=== PATIENT | male | born 1950 | race Caucasian/White ===

== ENCOUNTER 2020-05-05 14:54 | Emergency (ER) | payer MEDICARE, SELFPAY ==
[2020-05-05 15:08] VITALS: BP 181/81; PULSE 98; RESP 20; TEMP 36.6; O2SAT 96; BMI 38.5
[2020-05-05 15:36] LABS: Amorphous Sediment Urine 1+; Bacteria Urine Occasional (0-1); Culture Indicated Urine Specimen Cultured; Granular Casts Urine 1-5/LPF; Hyaline Casts Urine 1-5/LPF; Ictotest Urine Negative (Negative); Mucus Urine 1+ (Negative); RBC Urine >100/HPF (0-5/HPF); Squamous Epithelial Cell Urine 1-5 /HPF (0-5/HPF); Transitional Epi Cells Urine 1-5/HPF (0-5/HPF); WBC Urine 1-5/HPF (0-5/HPF)
[2020-05-05 15:54] LABS: Add Manual Diff / Slide Review NO; Basophils Absolute Auto 100 /uL (0-100); Basophils Percent Auto 0.9 % (0-2); Eosinophils Absolute Auto 0 /uL (0-450); Eosinophils Percent Auto 0.6 % (2-4); Hematocrit 45.9 % (41-53); Hemoglobin 15.8 g/dL (13.5-17.5); Lymphocytes Absolute Auto 1400 /uL (1100-4500); Mean Corpuscular HGB Conc 34.5 % (30-36); Mean Corpuscular Hemoglobin 31.2 PG (26-34); Mean Corpuscular Volume 90.5 fL (80-100); Monocytes Absolute Auto 700 /uL (0-900); Monocytes Percent Auto 11.9 % (3-14); Neutrophils Absolute Auto 4000 /uL (1500-7000); Neutrophils Percent Auto 63.6 % (50-75); Platelet Count 167 X10^3/uL (150-400); Red Blood Cell Count 5.07 X10^6/uL (4.5-5.9); Red Cell Distribution Width 13.2 % (11.6-14.8); White Blood Cell Count 6.3 X10^3/uL (4.5-11.0)
[2020-05-05 16:04] LABS: INR 2.4 (0.9-1.3); Prothrombin Time 27.3 SECONDS (10.1-12.7)
[2020-05-05 16:08] LABS: Alanine Aminotransferase 91 IU/L (<50); Albumin 4.4 g/dL (3.5-5.0); Albumin Globulin Ratio 1.2 (1.0-2.8); Alkaline Phosphatase 72 U/L (38-126); Amylase 73 U/L (30-110); Aspartate Aminotransferase 89 IU/L (17-59); BUN Creatinine Ratio 23.5 (6-22); Bilirubin Total 1.1 mg/dL (0.2-1.3); Blood Urea Nitrogen 23 mg/dL (9-20); Calcium 9.6 mg/dL (8.4-10.2); Carbon Dioxide 25 mmol/L (22-32); Chloride 102 mmol/L (98-107); Estimated Glomerular Filt Rate > 60.0 mL/min (>60); Globulin 3.7 g/dL (1.7-4.1); Glucose 100 mg/dL (80-110); HEMOLYSIS 15 (0-50); Lipase 100 U/L (23-300); Sodium 136 mmol/L (137-145); Total Protein 8.1 g/dL (6.3-8.2)
--- NOTE | 2020-05-05 16:11 | ED_ITS ---
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 He states he noticed blood in his urine a few days ago, saw his primary care provider today who referred him to the emergency department. He states he is on Coumadin for his DVTs, his INR today was 2.5. Denies any dysuria urgency or frequency. Does complain of some suprapubic tenderness on the right side. No fevers nausea vomiting or diarrhea. Denies any back or flank pain. He states that he noticed very little blood, it went away, but he still had some on a urine dip today. Denies passing any clots. Related Data Home Medications Medication Instructions Recorded Confirmed Fish Oil 1,000 mg PO Q DAY #0 03/08/11 [MULTIVITAMIN] #0 06/08/13 Previous Rx's Medication Instructions Recorded atorvastatin [Lipitor] 10 mg PO HS #90 tab 11/28/16 warfarin [Coumadin] 0 PO QDAY #90 tab 11/28/16 warfarin [Coumadin] 4 mg PO QDAY #90 tab 11/28/16 rivaroxaban [Xarelto] 0 PO QDAY #90 tab 04/25/17 Allergies Allergy/AdvReac Type Severity Reaction Status Date / Time niacin [NIACIN] AdvReac Mild ANXIETY, Verified 05/05/20 15:08 FLUSHING nifedipine [NIFEDIPINE] AdvReac Mild NASAL Verified 05/05/20 15:08 CONGESTION Review of Systems <MALVIN Pedersen - Last Filed: 05/05/20 19:01> Review of Systems Narrative: GENERAL: Denies chills, fatigue, malaise, fever, sweats. HEENT: Denies sinus pain, ear pain, sore throat, difficulty swallowing, dizziness. RESPIRATORY: Denies dyspnea, cough, wheezing, hemoptysis, sputum. CARDIOVASCULAR: Denies chest pain, palpitations, orthopnea, edema, GASTROINTESTINAL: See HPI : See HPI MUSCULOSKELETAL: denies weakness, joint pain, or bony pain SKIN: Denies rash, skin lesions, or other NEUROLOGIC: Denies weakness, headache, numbness, change in speech, confusion, seizures, incoordination. PSYCHIATRIC: No concerning psychosocial issues. 12 point review of systems is negative except for those stated above Patient History <MALVIN Pedersen - Last Filed: 05/05/20 19:01> Social History Smoking Status: Never smoker Smoking Status: Never smoker alcohol intake frequency: holidays/special occasions only Substance Use Type: does not use Exam <MALVIN Pedersen - Last Filed: 05/05/20 19:01> Narrative Exam Narrative: GENERAL: This is a well-nourished, well-developed patient, no acute distress HEAD: Atraumatic. Normocephalic. No temporal or scalp tenderness. EYES: Pupils equal round and reactive. Extraocular motions intact. No scleral icterus. No injection or drainage. ENT: Nose without bleeding, purulent drainage or septal hematoma. Throat without erythema, tonsillar hypertrophy or exudate. Uvula midline. Airway patent. NECK: Trachea midline. No JVD or lymphadenopathy. Supple, nontender, no meningeal signs. CARDIOVASCULAR: Regular rate and rhythm RESPIRATORY: Clear to auscultation. Breath sounds equal bilaterally. No wheezes, rales, or rhonchi. No cough. No increased respiratory effort. No accessory muscle use. GASTROINTESTINAL: Abdomen soft, left lower quadrant pain to palpation, active bowel sounds all 4 quadrants No hepato-splenomegaly, or palpable masses. No guarding. EXTREMITIES: No clubbing, cyanosis, or edema. No joint tenderness, effusion, or edema noted. BACK: Nontender without deformity or crepitance. No CVA tenderness NEURO: AOx3. Interactive, age appropriate SKIN: No rash or erythema on visible skin Initial Vital Signs Initial Vital Signs: Vital Signs Temperature 97.9 F 05/05/20 15:08 Pulse Rate 98 H 05/05/20 15:08 Respiratory Rate 20 05/05/20 15:08 Blood Pressure 181/81 H 05/05/20 15:08 Pulse Oximetry 96 05/05/20 15:08 <Awa Donovan DO - Last Filed: 05/12/20 07:56> Initial Vital Signs Initial Vital Signs: Vital Signs Temperature 97.9 F 05/05/20 15:08 Pulse Rate 98 H 05/05/20 15:08 Respiratory Rate 20 05/05/20 15:08 Blood Pressure 181/81 H 05/05/20 15:08 Pulse Oximetry 96 05/05/20 15:08 Scores <MALVIN Pedersen - Last Filed: 05/05/20 19:01> GCS Charles coma scale eye opening: Spontaneous Charles coma scale verbal response: Orientated Charles coma scale motor response: Obey commands Charles coma scale total score: 15 Course <MALVIN Pedersen - Last Filed: 05/05/20 19:01> Orders Ordered: ED Orders 05/05/20 15:00 Ictotest Urine Stat Urine Culture Stat Urine Microscopic Stat 05/05/20 15:45 Amylase Stat Complete Blood Count AUTO DIFF Stat Comprehensive Metabolic Panel Stat Lipase Stat Prothrombin Time INR Stat 05/05/20 16:31 CT abdomen pelvis w con Stat Vital Signs Vital signs: Vital Signs - 8 hr 05/05/20 15:08 05/05/20 18:11 Temperature 97.9 F 97.8 F Pulse Rate 98 H 88 Respiratory Rate 20 12 Blood Pressure 181/81 H 164/78 H Pulse Oximetry 96 99 <Awa Donovan DO - Last Filed: 05/12/20 07:56> Orders Ordered: ED Orders 05/05/20 15:00 Ictotest Urine Stat Urine Culture Stat Urine Microscopic Stat 05/05/20 15:45 Amylase Stat Complete Blood Count AUTO DIFF Stat Comprehensive Metabolic Panel Stat Lipase Stat Prothrombin Time INR Stat 05/05/20 16:31 CT abdomen pelvis w con Stat Vital Signs Vital signs: Vital Signs - 8 hr 05/05/20 15:08 05/05/20 18:11 Temperature 97.9 F 97.8 F Pulse Rate 98 H 88 Respiratory Rate 20 12 Blood Pressure 181/81 H 164/78 H Pulse Oximetry 96 99 MDM - Male Genitourinary <MALVIN Pedersen - Last Filed: 05/05/20 19:01> Differential Diagnosis Differential diagnosis: Likely urinary tract infection and acute retention of urine Lab Data Attestation: I reviewed the patient's lab results. Result diagrams: 05/05/20 15:45 05/05/20 15:45 Labs: Lab Results 05/05/20 05/05/20 05/05/20 Range/Units 15:00 15:45 15:45 WBC 6.3 (4.5-11.0) X10^3/uL RBC 5.07 (4.5-5.9) X10^6/uL Hgb 15.8 (13.5-17.5) g/dL Hct 45.9 (41-53) % MCV 90.5 (80-100) fL MCH 31.2 (26-34) PG MCHC 34.5 (30-36) % RDW 13.2 (11.6-14.8) % Plt Count 167 (150-400) X10^3/uL Neut % (Auto) 63.6 (50-75) % Lymph % (Auto) 23.0 L (25-40) % Mcduffie % (Auto) 11.9 (3-14) % Eos % (Auto) 0.6 L (2-4) % Baso % (Auto) 0.9 (0-2) % Neut # (Auto) 4000 (4830-0857) /uL Lymph # (Auto) 1400 (6884-4144) /uL Mcduffie # (Auto) 700 (0-900) /uL Eos # (Auto) 0 (0-450) /uL Baso # (Auto) 100 (0-100) /uL PT 27.3 H (10.1-12.7) SECONDS INR 2.4 H (0.9-1.3) Sodium (137-145) mmol/L Potassium (3.4-5.1) mmol/L Chloride (98-107) mmol/L Carbon Dioxide (22-32) mmol/L BUN (9-20) mg/dL Creatinine (0.66-1.25) mg/dL Estimated GFR (>60) mL/min BUN/Creatinine Ratio (6-22) Glucose (80-110) mg/dL Calcium (8.4-10.2) mg/dL Total Bilirubin (0.2-1.3) mg/dL AST (17-59) IU/L ALT (<50) IU/L Alkaline Phosphatase (38-126) U/L Total Protein (6.3-8.2) g/dL Albumin (3.5-5.0) g/dL Globulin (1.7-4.1) g/dL Albumin/Globulin Ratio (1.0-2.8) Amylase (30-110) U/L Lipase (23-300) U/L Ur Bilirubin Confirm Negative (Negative) Urine RBC >100/hpf H (0-5/HPF) Urine WBC 1-5/hpf (0-5/HPF) Ur Squamous Epith Cells 1-5 /hpf (0-5/HPF) Ur Transition Epith Cell 1-5/hpf (0-5/HPF) Amorphous Sediment 1+ Urine Bacteria Occasional (0-1) (None) Hyaline Casts 1-5/lpf (None) Granular Casts 1-5/lpf (None) Urine Mucus 1+ H (Negative) Ur Culture Indicated? Specimen cultured 05/05/20 Range/Units 15:45 WBC (4.5-11.0) X10^3/uL RBC (4.5-5.9) X10^6/uL Hgb (13.5-17.5) g/dL Hct (41-53) % MCV (80-100) fL MCH (26-34) PG MCHC (30-36) % RDW (11.6-14.8) % Plt Count (150-400) X10^3/uL Neut % (Auto) (50-75) % Lymph % (Auto) (25-40) % Mcduffie % (Auto) (3-14) % Eos % (Auto) (2-4) % Baso % (Auto) (0-2) % Neut # (Auto) (9509-2015) /uL Lymph # (Auto) (9422-0778) /uL Mcduffie # (Auto) (0-900) /uL Eos # (Auto) (0-450) /uL Baso # (Auto) (0-100) /uL PT (10.1-12.7) SECONDS INR (0.9-1.3) Sodium 136 L (137-145) mmol/L Potassium 4.0 (3.4-5.1) mmol/L Chloride 102 (98-107) mmol/L Carbon Dioxide 25 (22-32) mmol/L BUN 23 H (9-20) mg/dL Creatinine 0.98 (0.66-1.25) mg/dL Estimated GFR > 60.0 (>60) mL/min BUN/Creatinine Ratio 23.5 H (6-22) Glucose 100 (80-110) mg/dL Calcium 9.6 (8.4-10.2) mg/dL Total Bilirubin 1.1 (0.2-1.3) mg/dL AST 89 H (17-59) IU/L ALT 91 H (<50) IU/L Alkaline Phosphatase 72 (38-126) U/L Total Protein 8.1 (6.3-8.2) g/dL Albumin 4.4 (3.5-5.0) g/dL Globulin 3.7 (1.7-4.1) g/dL Albumin/Globulin Ratio 1.2 (1.0-2.8) Amylase 73 (30-110) U/L Lipase 100 (23-300) U/L Ur Bilirubin Confirm (Negative) Urine RBC (0-5/HPF) Urine WBC (0-5/HPF) Ur Squamous Epith Cells (0-5/HPF) Ur Transition Epith Cell (0-5/HPF) Amorphous Sediment Urine Bacteria (None) Hyaline Casts (None) Granular Casts (None) Urine Mucus (Negative) Ur Culture Indicated? Urine Dip Bedside Urine Glucose Negative Bedside Urine Bilirubin + 1 Bedside Urine Ketone +/- 5 Urine Specific Chandler 1.025 Bedside Urine Occult Blood +++ Bedside Urine pH 5.5 Bedside Urine Protein +/- 15 Bedside Urine Urobilinogen - Negative Bedside Urine Nitrite - Negative Bedside Urine Leukocytes +/- [address] scan - abdomen/pelvis: Radiologist's Impression: [address] [place] [address] CT Scan Report Signed Patient: Frank AdenMR#: [id number] : 9Acct:[id number] Age/Sex: 69 / MDate of Service: 05/05/20 Loc: ED Accession Number: [id number] Procedure: CT abdomen pelvis w con Ordering Provider: Jenifer Man- PROCEDURE: CT ABDOMEN PELVIS W CON INDICATIONS: llq pain TECHNIQUE: After the administration of intravenous contrast, 5 mm thick sections acquired from the diaphragm to the symphysis. 5 mm coronal and sagittal reformats were acquired. For radiation dose reduction, the following was used: automated exposure control, adjustment of mA and/or kV according to patient size. COMPARISON: None. FINDINGS: Image quality: Excellent. ABDOMEN: Lung bases: Lung bases are clear. Heart size is normal. Solid organs: Liver is normal in size and enhancement. Diffuse fatty liver infiltration is noted. Gallbladder wall is not thickened. Biliary system is non dilated. Pancreas enhances normally. Spleen is normal in size and enhancement. No adrenal nodule s. Kidneys demonstrate normal size and enhancement, without hydronephrosis. Peritoneum and bowel: In this patient with this given history, scrutiny is given to the left lower quadrant and the sigmoid colon. Sigmoid diverticulosis is seen, without findings of active diverticulitis. No left lower quadrant inflammatory changes are seen. Bowel loops demonstrate normal wall thickness and caliber. No free fluid or air. Nodes and vessels: No retroperitoneal or mesenteric adenopathy by size criteria. Aorta and inferior vena cava are normal in size. Miscellaneous: A mild periumbilical hernia is seen, containing fat. PELVIS: Genitourinary: Bladder wall thickness is normal. Miscellaneous: No inguinal adenopathy. Bilateral fat containing inguinal hernias are seen, right larger than left. Prominent varices are seen involving the anterior abdominal wall of the pelvis. Bones: No suspicious bony lesions. No vertebral body compression fractures. Age-appropriate bony degenerative changes are seen. IMPRESSION: Diverticulosis, without findings of active diverticulitis. No focal right lower quadrant inflammatory changes are seen. Note is made of prominent varices involving the anterior abdominal wall of the pelvis. Bilateral fat containing inguinal hernias are seen, right larger than left. Incidental note is made of: Fatty liver infiltration Fat containing periumbilical hernia Dictated by: Renato Lindo M.D. on 05/05/2020 at 16:10 Approved by: Renato Lindo M.D. on 05/05/2020 at 16:13 MDM Narrative Medical decision making narrative: The patient is a 69-year-old male who presents with a chief complaint of hematuria from his primary care provider. He has no gross hematuria on exam today, does have microscopic 3+. No signs of infection in urine or on lab work, no leukocytosis, no nitrates on urinalysis.. The patient appears well, nontoxic. He states hematuria is decreased since Saturday, so is possible that he passed a kidney stone at that time. His CT abdomen pelvis comes back with no acute findings, and I discussed at length the patient wants of following up with primary care provider to re-evaluate his urine, discussed that he may need to see Urology for cystoscope and gave him contact information to Dr. Hatfield. The patient is in accordance with plan of care, and I discussed at length coming back to the emergency department for any acute concerns such as chest pain, shortness of breath, concern of heart attack or stroke, inability to urinate, any acute concerns. Patient has no questions or concerns upon discharge and states understanding return precautions as well as follow-up care. <Awa Donovan, DO - Last Filed: 05/12/20 07:56> Lab Data Labs: Lab Results 05/05/20 05/05/20 05/05/20 Range/Units 15:00 15:45 15:45 WBC 6.3 (4.5-11.0) X10^3/uL RBC 5.07 (4.5-5.9) X10^6/uL Hgb 15.8 (13.5-17.5) g/dL Hct 45.9 (41-53) % MCV 90.5 (80-100) fL MCH 31.2 (26-34) PG MCHC 34.5 (30-36) % RDW 13.2 (11.6-14.8) % Plt Count 167 (150-400) X10^3/uL Neut % (Auto) 63.6 (50-75) % Lymph % (Auto) 23.0 L (25-40) % Mcduffie % (Auto) 11.9 (3-14) % Eos % (Auto) 0.6 L (2-4) % Baso % (Auto) 0.9 (0-2) % Neut # (Auto) 4000 (0465-5085) /uL Lymph # (Auto) 1400 (3491-5414) /uL Mcduffie # (Auto) 700 (0-900) /uL Eos # (Auto) 0 (0-450) /uL Baso # (Auto) 100 (0-100) /uL PT 27.3 H (10.1-12.7) SECONDS INR 2.4 H (0.9-1.3) Sodium (137-145) mmol/L Potassium (3.4-5.1) mmol/L Chloride (98-107) mmol/L Carbon Dioxide (22-32) mmol/L BUN (9-20) mg/dL Creatinine (0.66-1.25) mg/dL Estimated GFR (>60) mL/min BUN/Creatinine Ratio (6-22) Glucose (80-110) mg/dL Calcium (8.4-10.2) mg/dL Total Bilirubin (0.2-1.3) mg/dL AST (17-59) IU/L ALT (<50) IU/L Alkaline Phosphatase (38-126) U/L Total Protein (6.3-8.2) g/dL Albumin (3.5-5.0) g/dL Globulin (1.7-4.1) g/dL Albumin/Globulin Ratio (1.0-2.8) Amylase (30-110) U/L Lipase (23-300) U/L Ur Bilirubin Confirm Negative (Negative) Urine RBC >100/hpf H (0-5/HPF) Urine WBC 1-5/hpf (0-5/HPF) Ur Squamous Epith Cells 1-5 /hpf (0-5/HPF) Ur Transition Epith Cell 1-5/hpf (0-5/HPF) Amorphous Sediment 1+ Urine Bacteria Occasional (0-1) (None) Hyaline Casts 1-5/lpf (None) Granular Casts 1-5/lpf (None) Urine Mucus 1+ H (Negative) Ur Culture Indicated? Specimen cultured 05/05/20 Range/Units 15:45 WBC (4.5-11.0) X10^3/uL RBC (4.5-5.9) X10^6/uL Hgb (13.5-17.5) g/dL Hct (41-53) % MCV (80-100) fL MCH (26-34) PG MCHC (30-36) % RDW (11.6-14.8) % Plt Count (150-400) X10^3/uL Neut % (Auto) (50-75) % Lymph % (Auto) (25-40) % Mcduffie % (Auto) (3-14) % Eos % (Auto) (2-4) % Baso % (Auto) (0-2) % Neut # (Auto) (0302-6262) /uL Lymph # (Auto) (5078-5763) /uL Mcduffie # (Auto) (0-900) /uL Eos # (Auto) (0-450) /uL Baso # (Auto) (0-100) /uL PT (10.1-12.7) SECONDS INR (0.9-1.3) Sodium 136 L (137-145) mmol/L Potassium 4.0 (3.4-5.1) mmol/L Chloride 102 (98-107) mmol/L Carbon Dioxide 25 (22-32) mmol/L BUN 23 H (9-20) mg/dL Creatinine 0.98 (0.66-1.25) mg/dL Estimated GFR > 60.0 (>60) mL/min BUN/Creatinine Ratio 23.5 H (6-22) Glucose 100 (80-110) mg/dL Calcium 9.6 (8.4-10.2) mg/dL Total Bilirubin 1.1 (0.2-1.3) mg/dL AST 89 H (17-59) IU/L ALT 91 H (<50) IU/L Alkaline Phosphatase 72 (38-126) U/L Total Protein 8.1 (6.3-8.2) g/dL Albumin 4.4 (3.5-5.0) g/dL Globulin 3.7 (1.7-4.1) g/dL Albumin/Globulin Ratio 1.2 (1.0-2.8) Amylase 73 (30-110) U/L Lipase 100 (23-300) U/L Ur Bilirubin Confirm (Negative) Urine RBC (0-5/HPF) Urine WBC (0-5/HPF) Ur Squamous Epith Cells (0-5/HPF) Ur Transition Epith Cell (0-5/HPF) Amorphous Sediment Urine Bacteria (None) Hyaline Casts (None) Granular Casts (None) Urine Mucus (Negative) Ur Culture Indicated? Urine Dip Bedside Urine Glucose Negative Bedside Urine Bilirubin + 1 Bedside Urine Ketone +/- 5 Urine Specific Chandler 1.025 Bedside Urine Occult Blood +++ Bedside Urine pH 5.5 Bedside Urine Protein +/- 15 Bedside Urine Urobilinogen - Negative Bedside Urine Nitrite - Negative Bedside Urine Leukocytes +/- 15 Esterase Discharge Plan Departure Patient Disposition: Home Clinical Impression: Hematuria Qualifiers: Hematuria type: asymptomatic microscopic Qualified Code(s): R31.21 - Asymptomatic microscopic hematuria Discharge Date/Time: 05/05/20 18:12 Instructions: DI for Hematuria Activity Restrictions/Additional Instructions: Thank you for trusting us with your care today As discussed, there is no evidence of kidney stone. Your urine came back no signs of infection, your abdominal CT had no acute findings Please follow-up with primary care provider in the next few days. I suggest repeat urine testing. I have also given you contact information to Dr. Hatfield, the urologist here at [facility] in case you need to follow-up with him Please come back to the emergency department for any acute concerns Prescriptions: No Action Fish Oil 1,000 mg PO Q DAY Qty: 0 RF: 0 [MULTIVITAMIN] Qty: 0 RF: 0 atorvastatin [Lipitor] 10 MG tablet 10 mg PO HS Qty: 90 RF: 1 warfarin [Coumadin] 4 MG tablet 4 mg PO QDAY Qty: 90 RF: 1 warfarin [Coumadin] 5 MG tablet 0 PO QDAY Qty: 90 RF: 1 rivaroxaban [Xarelto] 20 MG tablet 0 PO QDAY Qty: 90 RF: 1 Referrals: Shant Hatfield MD [Physician] - Ning Terry ARNP [Non-Staff] - <Awa Donovan DO - Last Filed: 05/12/20 07:56> Cosign ED Attending Cosanitaature Attestation: I was immediately available in the department for consultation. Documentation has been reviewed. I agree with assessment and plan.
--- NOTE | 2020-05-05 16:31 | DI.CT.S_ITS ---
PROCEDURE: CT ABDOMEN PELVIS W CON INDICATIONS: llq pain TECHNIQUE: After the administration of intravenous contrast, 5 mm thick sections acquired from the diaphragm to the symphysis. 5 mm coronal and sagittal reformats were acquired. For radiation dose reduction, the following was used: automated exposure control, adjustment of mA and/or kV according to patient size. COMPARISON: None. FINDINGS: Image quality: Excellent. ABDOMEN: Lung bases: Lung bases are clear. Heart size is normal. Solid organs: Liver is normal in size and enhancement. Diffuse fatty liver infiltration is noted. Gallbladder wall is not thickened. Biliary system is non dilated. Pancreas enhances normally. Spleen is normal in size and enhancement. No adrenal nodules. Kidneys demonstrate normal size and enhancement, without hydronephrosis. Peritoneum and bowel: In this patient with this given history, scrutiny is given to the left lower quadrant and the sigmoid colon. Sigmoid diverticulosis is seen, without findings of active diverticulitis. No left lower quadrant inflammatory changes are seen. Bowel loops demonstrate normal wall thickness and caliber. No free fluid or air. Nodes and vessels: No retroperitoneal or mesenteric adenopathy by size criteria. Aorta and inferior vena cava are normal in size. Miscellaneous: A mild periumbilical hernia is seen, containing fat. PELVIS: Genitourinary: Bladder wall thickness is normal. Miscellaneous: No inguinal adenopathy. Bilateral fat containing inguinal hernias are seen, right larger than left. Prominent varices are seen involving the anterior abdominal wall of the pelvis. Bones: No suspicious bony lesions. No vertebral body compression fractures. Age-appropriate bony degenerative changes are seen. IMPRESSION: Diverticulosis, without findings of active diverticulitis. No focal right lower quadrant inflammatory changes are seen. Note is made of prominent varices involving the anterior abdominal wall of the pelvis. Bilateral fat containing inguinal hernias are seen, right larger than left. Incidental note is made of: Fatty liver infiltration Fat containing periumbilical hernia Dictated by: Renato Lindo M.D. on 05/05/2020 at 16:10 Approved by: Renato Lindo M.D. on 05/05/2020 at 16:13
[2020-05-05 18:11] VITALS: BP 164/78; PULSE 88; RESP 12; TEMP 36.6; O2SAT 99
== END 2020-05-05 18:12 | disposition home or self-care (01) ==
PROVIDERS: Emergency Provider Nurse Practitioner Family
DX: R31.21 Asymptomatic microscopic hematuria (principal); R10.32 Left lower quadrant pain; I82.409 Acute embolism and thrombosis of unspecified deep veins of unspecified lower extremity; Z79.01 Long term (current) use of anticoagulants
CPT/HCPCS: 36415; 74177; 80053; 81003; 81015; 82150; 83690; 85025; 85610; 87077; 87086; 99284; Q9967

== ENCOUNTER → 2021-01-06 12:02 | Outpatient (CLI) | payer MEDICARE, SELFPAY ==
--- NOTE | 2021-01-06 12:06 | DI.CT.S_ITS ---
PROCEDURE: CT CHEST ABDOMEN W CON INDICATIONS: Personal history of other malignant neoplasm of right kidney TECHNIQUE: After the administration of oral contrast and intravenous contrast, 5 mm thick sections acquired from the lung apices to the iliac crests. 5 mm coronal and sagittal reformats were performed, with additional 7 mm coronal MIP reformats through the lungs. For radiation dose reduction, the following was used: automated exposure control, adjustment of mA and/or kV according to patient size. COMPARISON: [facility], CR, XR CHEST 2 VIEWS, 05/26/2020, 12:10. [facility], CT, CT ABDOMEN PELVIS W CON, 05/05/2020, 16:47. FINDINGS: Image quality: Excellent. CHEST: Lungs and pleura: Within the right lung parenchyma, right middle lobe lateral segment, abutting the undersurface of the minor fissure there is an ovoid 7 x 8 mm nodule, mildly spiculated on the axial imaging, in an area that was not included on prior CT abdomen scanning from April of last year. No additional pulmonary nodule is seen elsewhere.. No pleural effusions or pneumothorax. Central and peripheral airways are patent and normal in caliber. Mediastinum: Heart size is normal. No pericardial effusion. No mediastinal or hilar adenopathy by size criteria. Thoracic aorta and central pulmonary arteries are normal in size. Esophagus is normal in caliber. No hiatal hernia. Chest wall: No axillary or supraclavicular adenopathy by size criteria. Thyroid gland appears normal . ABDOMEN: Solid organs: Liver is normal in size and enhancement. Gallbladder appears normal. Biliary system is non dilated. Pancreas enhances normally. Spleen is normal in size and enhancement. No adrenal nodules. The left kidney is normal in size and enhancement, without hydronephrosis. The right kidney is surgically absent and in the operative bed no recurrent mass is found. There is no adenopathy visualized. Peritoneum and bowel: Bowel loops demonstrate normal wall thickness and caliber. No free fluid or air. Nodes and vessels: No retroperitoneal or mesenteric adenopathy by size criteria. Aorta and inferior vena cava are normal in caliber. Bones: No suspicious bony lesions. No vertebral body compression fractures. Miscellaneous: No ventral hernias. IMPRESSION: 1. Interval right nephrectomy, expected postsurgical change, no evidence of recurrent neoplasm in the right renal fossa operative bed. 2. Beneath the diaphragms no evidence of metastatic disease. No osseous lesion found. 3. There is a 7 x 8 mm mildly spiculated radiodensity that is abutting the undersurface of the minor fissure, located anatomic Shahrzad at the upper margin of the right middle lobe lateral segment. This structure was not included in the abdomen/pelvis CT scanning from 05/05/20 and is of a small size that may not be visible by plain film. It is recommended that Drew frontal view in department plain film of the chest be obtained to determine whether the this structure is visible currently by plain film and compare that plain film to prior chest two views 05/26/20. 4. Follow-up attention to the lung abnormality is recommended in 3 months by follow-up noncontrast CT scanning. Dictated by: Cam Guadarrama M.D. on 01/06/2021 at 13:56 Approved by: Cam Guadarrama M.D. on 01/06/2021 at 14:39
[2021-01-06 12:39] LABS: Alanine Aminotransferase 48 IU/L (<50); Albumin 4.2 g/dL (3.5-5.0); Albumin Globulin Ratio 1.2 (1.0-2.8); Alkaline Phosphatase 62 U/L (38-126); Aspartate Aminotransferase 41 IU/L (17-59); BUN Creatinine Ratio 18.3 (6-22); Bilirubin Total 0.4 mg/dL (0.2-1.3); Blood Urea Nitrogen 23 mg/dL (9-20); Calcium 9.1 mg/dL (8.4-10.2); Carbon Dioxide 25 mmol/L (22-32); Chloride 106 mmol/L (98-107); Estimated Glomerular Filt Rate 56.4 mL/min (>60); Globulin 3.6 g/dL (1.7-4.1); Glucose 93 mg/dL (80-110); HEMOLYSIS < 15 (0-50); Potassium 4.7 mmol/L (3.4-5.1); Sodium 139 mmol/L (137-145); Total Protein 7.8 g/dL (6.3-8.2)
== END ==
PROVIDERS: PCP Family Medicine; Referring Provider Student in an Organized Health Care Education/Training Program; Visit Provider Student in an Organized Health Care Education/Training Program
DX: R91.1 Solitary pulmonary nodule (principal); K76.9 Liver disease, unspecified; Z85.528 Personal history of other malignant neoplasm of kidney; Z90.5 Acquired absence of kidney
CPT/HCPCS: 36415; 71260; 74160; 80053

== ENCOUNTER → 2021-05-03 11:47 | Outpatient (CLI) | payer MEDICARE, SELFPAY ==
--- NOTE | 2021-05-03 | DI.CT.S_ITS ---
PROCEDURE: CT CHEST WO CON INDICATIONS: Solitary pulmonary nodule TECHNIQUE: Noncontrast 2.0-2.5 mm thick sections acquired from the pulmonary apices to the posterior costophrenic angles. 7 mm thick axial MIP and 5 mm coronal and sagittal reformats were then acquired. A low radiation dose technique was utilized. COMPARISON: [facility], CT, CT ABDOMEN PELVIS W CON, 05/05/2020, 16:47. [facility], CT, CT CHEST ABDOMEN W CON, 01/06/2021, 13:29. FINDINGS: Image quality: Diagnostic, given the low radiation dose technique. Lungs and pleura: Redemonstrated 7 mm nodule involving the anterior right fissure as before, with grossly unchanged appearance since 01/06/21. Scattered subsegmental atelectasis and/or scarring. No focal consolidation. Airway thickening in keeping with nonspecific bronchitis and/or reactive airways disease. Mediastinum: Heart size is normal. Coronary artery calcifications noted. No pericardial effusion. No mediastinal adenopathy by size criteria. Thoracic aorta and central pulmonary arteries are normal in size. Esophagus is normal in caliber. No hiatal hernia. Bones and chest wall: No suspicious bony lesions. No vertebral body compression fractures. No axillary or supraclavicular adenopathy by size criteria. Thyroid gland negative . Abdomen: Visualized upper abdomen solid organs and bowel loops appear normal in the absence of contrast. IMPRESSION: Overall, unchanged appearance of right fissural nodule since 01/06/21 which is encouraging however recommend continued follow-up to document longer term stability. Neoplasm/metastatic disease cannot be excluded this time. Recommend follow-up CT chest in in December of 2021. Coronary atherosclerosis. Fleischner Society criteria for SOLID lung nodule followup. Nodule size (mm)Low-risk patientHigh-risk patient<6 (single or multiple)No routine followup.Optional CT at 12 months. 6-8 (single or multiple)CT at 6-12 months, then optional CT at 18-24 mo.CT at 6-12 months, then CT at 18-24 months. >8 (single)CT at 3 months, PET-CT, or biopsy. Same as for low-risk pts. >8 (multiple)CT at 3-6 months, then optional CT at 18-24 mo.CT at 3-6 months, then CT at 18-24 months. Fleischner Society criteria for SUB-SOLID lung nodule followup. Solitary pure ground-glass nodules<6 mm (ground glass or part solid)No followup needed. 6 mm or larger (ground glass)CT at 6-12 months to confirm persistence, then CT every 2 years until 5 years.6 mm or larger (part solid)CT at 3-6 months to confirm persistence, then annual CT until 5 years if unchanged and solid component remains <6 mm. Multiple sub-solid nodules<6 mmCT at 3-6 months, then CT consider at 2 & 4 years for high risk patients. [address] at 3-6 months. Subsequent management based on most suspicious lesions. Recommendations do not apply to lung cancer screening, patients with immunosuppression, or patients with known primary cancer. Dictated by: Rohan Boyle M.D. on 05/03/2021 at 13:16 Approved by: Rohan Boyle M.D. on 05/03/2021 at 13:22
== END ==
PROVIDERS: PCP Family Medicine; Referring Provider Student in an Organized Health Care Education/Training Program; Visit Provider Student in an Organized Health Care Education/Training Program
DX: R91.1 Solitary pulmonary nodule (principal); Z85.528 Personal history of other malignant neoplasm of kidney
CPT/HCPCS: 71250

== ENCOUNTER → 2021-06-28 10:52 | Outpatient (CLI) | payer MEDICARE, SELFPAY ==
--- NOTE | 2021-06-28 10:55 | DI.CT.S_ITS ---
PROCEDURE: CT CHEST ABDOMEN W CON INDICATIONS: LUNG NODULE TECHNIQUE: After the administration of oral contrast and intravenous contrast, 5 mm thick sections acquired from the lung apices to the iliac crests. 5 mm coronal and sagittal reformats were performed, with additional 7 mm coronal MIP reformats through the lungs. For radiation dose reduction, the following was used: automated exposure control, adjustment of mA and/or kV according to patient size. COMPARISON: [facility], CT, CT CHEST ABDOMEN W CON, 01/06/2021, 13:29. FINDINGS: Image quality: Excellent. CHEST: Lungs and pleura: Thin, flat, 6 mm juxta fissural nodule associated with the right minor fissure, 2/148 is unchanged in morphology. No other lung nodules. Minor subpleural scarring at both lung bases. Airways are patent and of normal caliber. No pleural effusions. Mediastinum: Heart size is normal. Mild coronary calcification. No pericardial effusion. No mediastinal or hilar adenopathy by size criteria. Thoracic aorta and central pulmonary arteries are normal in size. Esophagus is normal in caliber. No hiatal hernia. Chest wall: No axillary or supraclavicular adenopathy by size criteria. Thyroid gland is normal . ABDOMEN: Solid organs: Liver is mildly elongated and decreased in overall attenuation suggesting steatosis. No enhancing mass.. Gallbladder appears normal . Biliary system is non dilated. Pancreas enhances normally. Spleen is normal in size and enhancement. No adrenal nodules. The right kidney is surgically absent. Small triangular low-density focus of residual tissue in the nephrectomy bed measures 1.0 cm, previously 1.3 cm. No contralateral renal masses. No hydronephrosis. Peritoneum and bowel: Small air-filled duodenal diverticulum extending into the pancreatic uncinate process. There is diverticulosis throughout the loops of visible colon. Bowel loops demonstrate normal wall thickness and caliber. No free fluid or air. Nodes and vessels: Minimally prominent collins hepatis node measures 1.1 cm in short axis, stable. No other retroperitoneal nodes. No visible mesenteric mass. Bones: No suspicious bony lesions. Degenerative endplate spurring throughout the spine. No vertebral body compression fractures. Miscellaneous: No ventral hernias. IMPRESSION: 1. Stable size and morphology of the 6 mm right juxta fissural nodule. No new lung nodules. 2. Prior right nephrectomy with decreasing size of residual low-density tissue in the nephrectomy bed, probably resolving surgical change. No evidence of local recurrence. 3. No change to a minimally prominent collins hepatis lymph node. 4. Stable hepatic steatosis. 5. Colonic and duodenal diverticulosis. Dictated by: Vesta Dobson M.D. on 06/28/2021 at 14:33 Approved by: Vesta Dobson M.D. on 06/28/2021 at 14:45
[2021-06-28 11:31] LABS: Alanine Aminotransferase 62 IU/L (<50); Albumin 4.2 g/dL (3.5-5.0); Albumin Globulin Ratio 1.2 (1.0-2.8); Alkaline Phosphatase 50 U/L (38-126); Aspartate Aminotransferase 48 IU/L (17-59); BUN Creatinine Ratio 20.7 (6-22); Bilirubin Total 0.7 mg/dL (0.2-1.3); Blood Urea Nitrogen 30 mg/dL (9-20); Calcium 9.6 mg/dL (8.4-10.2); Carbon Dioxide 28 mmol/L (22-32); Chloride 104 mmol/L (98-107); Globulin 3.4 g/dL (1.7-4.1); Glucose 89 mg/dL (80-110); HEMOLYSIS < 15 (0-50); Potassium 4.2 mmol/L (3.4-5.1); Sodium 141 mmol/L (137-145); Total Protein 7.6 g/dL (6.3-8.2)
== END ==
PROVIDERS: PCP Family Medicine; Referring Provider Student in an Organized Health Care Education/Training Program; Visit Provider Student in an Organized Health Care Education/Training Program
DX: R91.1 Solitary pulmonary nodule (principal); K76.0 Fatty (change of) liver, not elsewhere classified; K57.10 Diverticulosis of small intestine without perforation or abscess without bleeding; K57.90 Diverticulosis of intestine, part unspecified, without perforation or abscess without bleeding; Z85.528 Personal history of other malignant neoplasm of kidney; Z90.5 Acquired absence of kidney
CPT/HCPCS: 36415; 71260; 74160; 80053

== ENCOUNTER → 2022-01-05 10:56 | Outpatient (CLI) | payer MEDICARE, SELFPAY ==
[2022-01-05 11:28] LABS: Alanine Aminotransferase 47 IU/L (<50); Albumin 4.5 g/dL (3.5-5.0); Albumin Globulin Ratio 1.1 (1.0-2.8); Alkaline Phosphatase 73 U/L (38-126); Aspartate Aminotransferase 40 IU/L (17-59); BUN Creatinine Ratio 16.7 (6-22); Bilirubin Total 0.5 mg/dL (0.2-1.3); Blood Urea Nitrogen 22 mg/dL (9-20); Calcium 8.9 mg/dL (8.4-10.2); Carbon Dioxide 27 mmol/L (22-32); Chloride 107 mmol/L (98-107); Estimated Glomerular Filt Rate 57 mL/min (>60); Glucose 103 mg/dL (80-110); HEMOLYSIS < 15 (0-50); Potassium 4.6 mmol/L (3.4-5.1); Sodium 138 mmol/L (137-145); Total Protein 8.5 g/dL (6.3-8.2)
--- NOTE | 2022-01-05 11:38 | DI.CT.S_ITS ---
PROCEDURE: CT CHEST ABDOMEN W CON INDICATIONS: HISTORY OF RIGHT KIDNEY CANCER PULMONARY NODULE TECHNIQUE: After the administration of oral contrast and intravenous contrast, 5 mm thick sections acquired from the lung apices to the iliac crests. 5 mm coronal and sagittal reformats were performed, with additional 7 mm coronal MIP reformats through the lungs. For radiation dose reduction, the following was used: automated exposure control, adjustment of mA and/or kV according to patient size. COMPARISON: [facility], CT, CT CHEST ABDOMEN W CON, 01/06/2021, 13:29. [facility], CT, CT CHEST ABDOMEN W CON, 06/28/2021, 12:15. FINDINGS: Image quality: Excellent. CHEST: Lungs and pleura: Stable 6 mm minor fissure fissural nodule on the right, likely a fissural lymph node. No new or increasing pulmonary nodules. Minimal pleural based scarring, right lung base, image 288/3. No acute air space opacities. No pleural effusions or pneumothorax. Central and peripheral airways are patent and normal in caliber. Mediastinum: Heart size is normal. No pericardial effusion. Mild coronary artery calcifications. No mediastinal or hilar adenopathy by size criteria. Thoracic aorta and central pulmonary arteries are normal in size. Esophagus is normal in caliber. No hiatal hernia. Chest wall: No axillary or supraclavicular adenopathy by size criteria. Thyroid gland is unremarkable as visualized . ABDOMEN: Solid organs: Moderate diffuse hepatic steatosis. No focal liver masses. Gallbladder is unremarkable. Biliary system is non dilated. Pancreas enhances normally. Spleen is normal in size and enhancement. No adrenal nodules surgical absence of the right kidney. No residual tumor in the renal bed. Unremarkable left kidney. Peritoneum and bowel: Bowel loops demonstrate normal wall thickness and caliber. No free fluid or air. Nodes and vessels: No retroperitoneal or mesenteric adenopathy by size criteria. Aorta and inferior vena cava are normal in caliber. Bones: Stable lucent small lesion of the right clavicular head, current image 14/2 and previous image /, indeterminate. This is stable dating back to image 11/3 of the 01/06/2021 study. No vertebral body compression fractures. Miscellaneous: No ventral hernias. IMPRESSION: 1. Stable findings in the chest. A fissural nodule likely represents a benign 6 mm lymph node. 2. Diffuse hepatic steatosis. 3. No evidence of residual or recurrent tumor in the right renal bed. No evidence of metastatic disease in the abdomen. Dictated by: Bradley Castle M.D. on 01/05/2022 at 15:09 Approved by: Bradley Castle M.D. on 01/05/2022 at 15:36
== END ==
PROVIDERS: PCP Family Medicine; Referring Provider Student in an Organized Health Care Education/Training Program; Visit Provider Student in an Organized Health Care Education/Training Program
DX: R91.1 Solitary pulmonary nodule (principal); K76.0 Fatty (change of) liver, not elsewhere classified; Z85.528 Personal history of other malignant neoplasm of kidney
CPT/HCPCS: 36415; 71260; 74160; 80053

== ENCOUNTER → 2023-02-22 12:03 | Outpatient (CLI) | payer MEDICARE, SELFPAY ==
--- NOTE | 2023-02-22 | DI.CT.S_ITS ---
PROCEDURE: CT CHEST ABDOMEN W CON INDICATIONS: KIDNEY CANCER TECHNIQUE: After the administration of oral contrast and intravenous contrast, 5 mm thick sections acquired from the lung apices to the iliac crests. 5 mm coronal and sagittal reformats were performed, with additional 7 mm coronal MIP reformats through the lungs. For radiation dose reduction, the following was used: automated exposure control, adjustment of mA and/or kV according to patient size. COMPARISON: [facility], CT, CT CHEST ABDOMEN W CON, 01/05/2022, 12:03. FINDINGS: Image quality: Excellent. CHEST: Lungs and pleura: No acute air space opacities. No pleural effusions or pneumothorax. Central and peripheral airways are patent and normal in caliber. Multiple pulmonary nodules. Examples include: - 8 mm solid nodule in the right lower lobe, previously 3 mm (series 5, image 232). -7 mm solid nodule, left lower lobe, previously 2 mm (series 5, image 144). - Stable 8 mm juxtapleural nodule along the right minor fissure (series 5, image 149). Mediastinum: Heart size is normal. No pericardial effusion. No mediastinal or hilar adenopathy by size criteria. Thoracic aorta and central pulmonary arteries are normal in size. Esophagus is normal in caliber. No hiatal hernia. Chest wall: No axillary or supraclavicular adenopathy by size criteria. Thyroid gland is unremarkable . ABDOMEN: Solid organs: Liver is normal in size and enhancement. Gallbladder contains sludge . Biliary system is non dilated. Pancreas enhances normally. Spleen is normal in size and enhancement. No adrenal nodules. Right nephrectomy. Left kidney is unremarkable. Peritoneum and bowel: Bowel loops demonstrate normal wall thickness and caliber. No free fluid or air. Colonic diverticulosis without evidence of diverticulitis. Sequela of intraperitoneal fat necrosis in the right upper quadrant (series 2, image 77). Nodes and vessels: No retroperitoneal or mesenteric adenopathy by size criteria. Aorta and inferior vena cava are normal in caliber. Bones: No suspicious bony lesions. No vertebral body compression fractures. Miscellaneous: No ventral hernias. IMPRESSION: Prior right nephrectomy, without evidence of local recurrence or raul disease. A couple of growing solid pulmonary nodules since 01/05/2022, moderately concerning for metastatic disease. Consider 3 month follow-up chest CT, as these are at the lower limits for detection by PET. Dictated by: Gavino Milian M.D. on 02/22/2023 at 15:31 Approved by: Gavino Milian M.D. on 02/22/2023 at 15:42
[2023-02-22 12:49] LABS: Estimated Glomerular Filt Rate 58 mL/min (>60)
== END ==
PROVIDERS: Radiology Diagnostic Radiology; PCP Family Medicine; Referring Provider Student in an Organized Health Care Education/Training Program; Visit Provider Student in an Organized Health Care Education/Training Program
DX: Z85.528 Personal history of other malignant neoplasm of kidney (principal); Z79.01 Long term (current) use of anticoagulants; R91.8 Other nonspecific abnormal finding of lung field; Z90.5 Acquired absence of kidney
CPT/HCPCS: 36415; 71260; 74160; 82565

== ENCOUNTER → 2023-06-05 10:57 | Outpatient (CLI) | payer MEDICARE, SELFPAY ==
--- NOTE | 2023-06-05 | DI.CT.S_ITS ---
PROCEDURE: CT CHEST WO CON INDICATIONS: HISTORY OF KIDNEY CANCER / PULMONARY NODULE TECHNIQUE: Noncontrast 5 mm thick sections acquired from the pulmonary apices to the posterior costophrenic angles. 1 mm lung window, 5 mm thick coronal and sagittal and 7 mm axial MIP reformats were then acquired. For radiation dose reduction, the following was used: automated exposure control, adjustment of mA and/or kV according to patient size. COMPARISON: [facility], CT, CT CHEST WO CON, 05/03/2021, 11:53. FINDINGS: Image quality: Excellent. Lungs and pleura: Central and peripheral airways are normal without bronchial wall thickening or bronchiectasis. 8 mm right lower lobe solid nodules unchanged, 3/235. 8 mm central bronchovascular left lower lobe solid nodule is also stable, 3/160. 7 mm right juxta fissural nodule is stable. Pleural irregularity along the right posterior lower lobe. No new nodule or mass. No acute consolidations or ground-glass opacities. No pleural effusion. Mediastinum: Heart size is normal. Moderate coronary artery calcification. No pericardial effusion. No mediastinal adenopathy by size criteria. There are several mildly prominent periesophageal posterior mediastinal lymph nodes which maintain a fatty hilum. Thoracic aorta and central pulmonary arteries are normal in size. Esophagus is normal in caliber. No hiatal hernia. Bones and chest wall: No suspicious bony lesions. Increasing endplate irregularity and sclerosis at the T9-10 level with new vacuum phenomenon at the disc. No vertebral body compression fractures. No axillary or supraclavicular adenopathy by size criteria. Thyroid gland is normal . Abdomen: Visualized upper abdominal solid organs and bowel loops appear normal in the absence of contrast. IMPRESSION: 1. Stable bilateral solid pulmonary nodules. As these have gradually increased over several prior studies, indolent metastatic disease cannot be excluded and close follow-up until they reach the threshold for PET-CT is recommended. 2. Moderate coronary artery calcification. 3. Increasing endplate irregularity, probably degenerative changes at the T9-10 level. No visible soft tissue component. No lytic lesions to suggest metastatic disease. Dictated by: Vesta Dobson M.D. on 06/05/2023 at 15:05 Approved by: Vesta Dobson M.D. on 06/05/2023 at 15:20
== END ==
PROVIDERS: PCP Family Medicine; Referring Provider Student in an Organized Health Care Education/Training Program; Visit Provider Student in an Organized Health Care Education/Training Program
DX: R91.8 Other nonspecific abnormal finding of lung field (principal); Z85.528 Personal history of other malignant neoplasm of kidney; I25.10 Atherosclerotic heart disease of native coronary artery without angina pectoris
CPT/HCPCS: 71250

== ENCOUNTER → 2024-10-01 10:04 | Outpatient (CLI) | payer MEDICARE, OTHER, SELFPAY ==
--- NOTE | 2024-10-01 10:08 | DI.CT.S_ITS ---
PROCEDURE: CT CHEST ABDOMEN W CON INDICATIONS: HISTORY OF RENAL CARCINOMA/PULM NODULES TECHNIQUE: After the administration of intravenous contrast, 5 mm thick sections acquired from the lung apices to the iliac crests. 5 mm coronal and sagittal reformats were performed, with additional 7 mm coronal MIP reformats through the lungs. For radiation dose reduction, the following was used: automated exposure control, adjustment of mA and/or kV according to patient size. COMPARISON: [facility], CT, CT CHEST WO CON, 06/05/2023, 11:18. [facility], CT, CT CHEST ABDOMEN W CON, 02/22/2023, 14:02. FINDINGS: Image quality: Diagnostic Lungs and pleura: Right lower lobe pulmonary nodule with lobulated contour measures 1.5 cm previously 1 cm. (/154). Left lower lobe pulmonary nodule measures 1.7 cm previously 0.8 cm. Stable right fissural nodule (/84) Other smaller nodules are also seen, stable. Mediastinum, heart, and esophagus: Coronary calcifications. Small hiatal hernia. No pathologic lymphadenopathy by size criteria. Borderline cardiomegaly. Unremarkable esophagus otherwise Chest wall and thyroid: Unremarkable Liver: Possible hepatic steatosis. Gallbladder and biliary system: Unremarkable, nondilated. Duodenal diverticulum is seen adjacent to the ampulla. There are few borderline enlarged collins hepatis lymph nodes again seen, possibly reactive. Pancreas: No ductal dilation Spleen: Nonenlarged Adrenals: No discrete nodules Kidneys: No solid mass or hydronephrosis in the left. Right nephrectomy. No suspicious enhancing soft tissue at the surgical bed Vessels and lymph nodes: No pathologic lymph nodes by size criteria. No abdominal aortic aneurysm. Bowel and peritoneum: No small bowel obstruction. There are colonic diverticula. Body wall: Unremarkable Bones: Degenerative changes. Nonacute appearing rib fractures are also seen. IMPRESSION: Slow growing bilateral lower lobe pulmonary nodules, unequivocally increased in size compared to 202 imaging. Differential includes metastatic disease versus synchronous primary pulmonary neoplasms. The latter is favored. Consider PET-CT. Percutaneous sampling is possible though difficult due to lesion location. Right nephrectomy bed without suspicious local soft tissue at the surgical site. No pathologic lymph nodes by size criteria in the chest or abdomen. Other incidental CT findings above. Dictated by: Refugio Lizarraga M.D. on 10/01/2024 at 13:21 Approved by: Refugio Lizarraga M.D. on 10/01/2024 at 13:31
[2024-10-01 10:37] LABS: Estimated Glomerular Filt Rate 54 mL/min (>60)
== END ==
PROVIDERS: Radiology Diagnostic Radiology; PCP Family Medicine; Referring Provider Family Medicine; Visit Provider Family Medicine
DX: R91.8 Other nonspecific abnormal finding of lung field (principal); Z85.528 Personal history of other malignant neoplasm of kidney; I25.10 Atherosclerotic heart disease of native coronary artery without angina pectoris; K44.9 Diaphragmatic hernia without obstruction or gangrene; K57.90 Diverticulosis of intestine, part unspecified, without perforation or abscess without bleeding; K57.10 Diverticulosis of small intestine without perforation or abscess without bleeding; Z90.5 Acquired absence of kidney
CPT/HCPCS: 36415; 71260; 74160; 82565; Q9967